=== PATIENT | female | born 1985 | race Caucasian/White ===

== ENCOUNTER 2020-01-12 12:15 | Emergency (ER) | payer OTHER, SELFPAY ==
[2020-01-12] MEDS: ONDANSETRON 4 MG/2 ML INJ IV (13:26)
[2020-01-12 13:35] LABS: Add Manual Diff / Slide Review NO; Basophils Absolute Auto 0 /uL (0-100); Basophils Percent Auto 0.2 % (0-2); Eosinophils Absolute Auto 0 /uL (0-450); Hematocrit 43.5 % (36-46); Lymphocytes Absolute Auto 700 /uL (1100-4500); Lymphocytes Percent Auto 5.3 % (25-40); Mean Corpuscular HGB Conc 34.5 % (30-36); Mean Corpuscular Hemoglobin 30.8 PG (26-34); Mean Corpuscular Volume 89.4 fL (80-100); Monocytes Absolute Auto 200 /uL (0-900); Monocytes Percent Auto 1.6 % (3-14); Neutrophils Absolute Auto 12200 /uL (1500-7000); Neutrophils Percent Auto 92.9 % (50-75); Platelet Count 290 X10^3/uL (150-400); Red Blood Cell Count 4.86 X10^6/uL (4.0-5.2); Red Cell Distribution Width 12.7 % (11.6-14.8); White Blood Cell Count 13.1 X10^3/uL (4.5-11.0)
[2020-01-12 13:43] LABS: INR 1.1 (0.9-1.3); Prothrombin Time 12.7 SECONDS (10.1-12.7)
[2020-01-12 13:46] LABS: PTT Partial Thromboplastin Tim 33 SECONDS (26.4-36.2)
[2020-01-12 13:52] LABS: Alanine Aminotransferase 30 IU/L (<35); Albumin 5.3 g/dL (3.5-5.0); Albumin Globulin Ratio 1.3 (1.0-2.8); Alkaline Phosphatase 158 U/L (38-126); Aspartate Aminotransferase 27 IU/L (14-36); BUN Creatinine Ratio 16.7 (6-22); Bilirubin Total 0.5 mg/dL (0.2-1.3); Blood Urea Nitrogen 10 mg/dL (7-17); Calcium 10.2 mg/dL (8.4-10.2); Carbon Dioxide 26 mmol/L (22-32); Chloride 103 mmol/L (98-107); Estimated Glomerular Filt Rate > 60.0 mL/min (>60); Globulin 4.1 g/dL (1.7-4.1); Glucose 140 mg/dL (70-100); HEMOLYSIS < 15 (0-50); Lipase 93 U/L (23-300); Potassium 4.2 mmol/L (3.4-5.1); Sodium 142 mmol/L (137-145); Total Protein 9.4 g/dL (6.3-8.2)
[2020-01-12 16:07] VITALS: BP 148/83; PULSE 80; RESP 16; O2SAT 98
--- NOTE | 2020-01-12 17:08 | DI.RAD.S_ITS ---
PROCEDURE: XR ACUTE ABDOMEN SERIES INDICATIONS: diffuse abdominal pain with cyclical vomiting TECHNIQUE: One view chest and two views of the abdomen were acquired. COMPARISON: None. FINDINGS: Surgical changes and devices: Cholecystectomy clips. Chest: Lungs are clear. Heart size is normal. No pleural effusions. No pneumoperitoneum. Abdomen: Bowel gas pattern is nonspecific. No suspicious calcifications. Visualized solid organ contours appear normal. Bones: No suspicious bony lesions. IMPRESSION: Nonspecific bowel gas pattern without definite evidence of obstruction. Dictated by: Tona Olson MD, PhD on 01/12/2020 at 18:00 Approved by: Tona Olson MD, PhD on 01/12/2020 at 18:01
[2020-01-12] MEDS: MAG HYDROX/ALUMINUM/SIMETH SUS 20 ML, LIDOCAINE VISCOUS 2% 15 ML PO (17:21)
[2020-01-12] MEDS: PANTOPRAZOLE 40 MG VIAL IV (17:21)
[2020-01-12] MEDS: diphenhydrAMINE 50 MG/ML VIAL 25 MG IV (17:22)
[2020-01-12] MEDS: SODIUM CHLORIDE 0.9% 1,000 ML 1000 ML IV (17:22)
[2020-01-12 17:24] VITALS: PULSE 77; TEMP 36.9; O2SAT 100
[2020-01-12] MEDS: ONDANSETRON 8 MG in SODIUM CHLORIDE 0.9% 50 ML 216 ML IV (17:25)
[2020-01-12] MEDS: DICYCLOMINE 10 MG CAPSULE 20 MG PO (17:40)
[2020-01-12 18:00] VITALS: BP 141/81; PULSE 71; RESP 16; O2SAT 99
--- NOTE | 2020-01-12 18:02 | ED.ABDPAIN ---
HPI - Abdominal Pain <Gonzalo Fuentes MD - Last Filed: 01/12/20 22:00> General Chief Complaint: Abdominal Pain Stated Complaint: constant vomiting since last night Time Seen by Provider: 01/12/20 16:37 Source: patient Mode of arrival: Ambulatory History of Present Illness HPI narrative: CC: Persistent recurrent vomiting HPI: The patient is a 34-year-old female with a history of persistent recurrent vomiting. This is the 3rd time that she has been in the hospital in the last few weeks prior to admission. She has a history of cyclical vomiting according to the patient. However with this episode she developed the worst pain she has had. She complains of severe indigestion and heartburn. She has had sweats with that fever chills. She has had chest pain that is secondary to burning. She denies being claims being short of breath. She does not remember when her last menstrual period is because she does not pay attention or remember them since she has had a tubal ligation. She has had her gallbladder removed but not her appendix. She has a history of asthma but denies diabetes. She smokes cigarettes but does not drink alcohol. She smokes marijuana 3 to 4 times a week. Her states that this is the 3rd time she has presented with this complaint in the last few weeks prior to admission. She she denies any cough but has had shortness of breath with severe heartburn and indigestion. She denies any muscle or joint aches as well as any significant backache. She has had no hematemesis coffee-ground emesis or bilious emesis. He has had copious diarrhea without melena or hematochezia. He she has had no urinary symptoms. Related Data Previous Rx's Medication Instructions Recorded ondansetron HCl [Zofran] 4 mg PO Q8H PRN #10 tab 01/12/20 promethazine 25 mg FL Q4-6H PRN #12 each 01/12/20 Allergies Allergy/AdvReac Type Severity Reaction Status Date / Time aspirin [ASPIRIN] Allergy Unknown DIFFICULTY Verified 01/12/20 12:28 BREATHING Review of Systems <Gonzalo Fuentes MD - Last Filed: 01/12/20 22:00> Review of Systems Narrative: Review of systems were all negative except for those mentioned in the history of present illness. Exam <Gonzalo Fuentes MD - Last Filed: 01/12/20 22:00> Narrative Exam Narrative: PHYSICAL EXAM: CONSTITUTIONAL: Awake, Alert, cooperative appears to be in [id number] distress. She appears ill and sick. HEAD: AT/NC EENT: PERRL, FROM of eyes, no discharge, Oral mucosa is moist and pink, posterior pharynx is without erythema or exudate. NECK: Supple, no obvious JVD, Trachea is midline without stridor, no palpable LN or masses. SPINE: No gross deformity, no palpable tenderness of the cervical, thoracic, lumbar or sacral spine. No CVA tenderness. THORAX: No deformity, retractions, chest wall tenderness, LUNGS: Breath sounds are clear symmetrical in decreased bilaterally without any rales rhonchi. HEART: Heart tones are regular rhythm and rate without murmur.. ABDOMEN: Abdomen is soft with diffuse tenderness in all 4 quadrants. Patient is most tender in the left lower quadrant. There is minimal guarding no rebound no rigidity appreciated. EXTREMITIES: No edema, cyanosis, deformity or tenderness. SKIN: No rash, bruising, petechiae or purpura. NEURO: Awake, alert, oriented, conversive, no focal facial asymmetry, cranial nerves II-XII are symmetrical moves all 4 extremities and is ambulatory Initial Vital Signs Initial Vital Signs: Vital Signs Pulse Rate 80 01/12/20 16:07 Respiratory Rate 16 01/12/20 16:07 Blood Pressure 148/83 H 01/12/20 16:07 Pulse Oximetry 98 01/12/20 16:07 <Sanjay Nguyễn DO - Last Filed: 01/13/20 05:12> Initial Vital Signs Initial Vital Signs: Vital Signs Pulse Rate 80 01/12/20 16:07 Respiratory Rate 16 01/12/20 16:07 Blood Pressure 148/83 H 01/12/20 16:07 Pulse Oximetry 98 01/12/20 16:07 Course <Gonzalo Fuentes MD - Last Filed: 01/12/20 22:00> Course Course Narrative: 1800 the patient still continues to complain of abdominal pain. Flat plate of the abdomen shows a questionable sentinel loop for small-bowel with a air. Will obtain a CT abdomen to rule out appendicitis or bowel obstruction. Orders Ordered: Discontinued Medications Al Hydrox/Mg Hydrox/Simethicone 20 ml/ Lidocaine HCl 15 ml 0 ml PO NOW ONE Stop: 02/16/20 17:10 Last Admin: 01/12/20 17:21 Dose: 35 ml Documented by: LILIA Dicyclomine HCl (Bentyl) 20 mg PO NOW ONE Stop: 01/12/20 17:15 Last Admin: 01/12/20 17:40 Dose: 20 mg Documented by: LILIA Diphenhydramine HCl (Benadryl) 25 mg IV NOW ONE Stop: 01/12/20 17:08 Last Admin: 01/12/20 17:22 Dose: 25 mg Documented by: LILIA Ondansetron HCl 8 mg/ Sodium (Chloride) 54 mls @ 216 mls/hr IV NOW ONE Stop: 01/12/20 17:08 Last Infusion: 01/12/20 17:45 Dose: 0 mls/hr Documented by: Admin: 01/12/20 17:25 Dose: 216 mls/hr Documented by: LILIA Sodium Chloride (Normal Saline 0.9%) 1,000 mls @ 1,000 mls/hr IV BOLUS ONE Stop: 01/12/20 18:08 Last Infusion: 01/12/20 21:21 Dose: 0 mls/hr Documented by: Admin: 01/12/20 17:22 Dose: 1,000 mls/hr Documented by: LILIA Ondansetron HCl (Zofran) 4 mg IV NOW ONE Stop: 01/12/20 13:22 Last Admin: 01/12/20 13:26 Dose: 4 mg Documented by: ELVIA Ondansetron HCl (Zofran Odt Prepack) 1 bottle MISC SEEINSTR ONE Stop: 01/12/20 20:13 Last Admin: 01/12/20 21:21 Dose: 1 bottle Documented by: SHELLEY Pantoprazole Sodium (Protonix) 40 mg IV NOW ONE Stop: 01/12/20 17:08 Last Admin: 01/12/20 17:21 Dose: 40 mg Documented by: LILIA Vital Signs Vital signs: Vital Signs - 8 hr 01/12/20 21:32 Temperature 98.4 F Pulse Rate 78 Respiratory Rate 18 Blood Pressure 126/76 Pulse Oximetry 100 <Sanjay Nguyễn DO - Last Filed: 01/13/20 05:12> Course Course Narrative: Patient received in sign-out from Dr. Fuentes. I performed independent history and physical. She has had no vomiting since being signed out to myself. Her pain is better. She is back from CT scan which shows no obstruction or surgical abnormalities. Patient feeling marked improvement, return precautions given, questions answered to her apparent satisfaction, ready for discharge Orders Ordered: Discontinued Medications Al Hydrox/Mg Hydrox/Simethicone 20 ml/ Lidocaine HCl 15 ml 0 ml PO NOW ONE Stop: 01/12/20 17:10 Last Admin: 01/12/20 17:21 Dose: 35 ml Documented by: LILIA Dicyclomine HCl (Bentyl) 20 mg PO NOW ONE Stop: 01/12/20 17:15 Last Admin: 01/12/20 17:40 Dose: 20 mg Documented by: LILIA Diphenhydramine HCl (Benadryl) 25 mg IV NOW ONE Stop: 01/12/20 17:08 Last Admin: 01/12/20 17:22 Dose: 25 mg Documented by: LILIA Ondansetron HCl 8 mg/ Sodium (Chloride) 54 mls @ 216 mls/hr IV NOW ONE Stop: 01/12/20 17:08 Last Infusion: 01/12/20 17:45 Dose: 0 mls/hr Documented by: Admin: 01/12/20 17:25 Dose: 216 mls/hr Documented by: LILIA Sodium Chloride (Normal Saline 0.9%) 1,000 mls @ 1,000 mls/hr IV BOLUS ONE Stop: 01/12/20 18:08 Last Infusion: 01/12/20 21:21 Dose: 0 mls/hr Documented by: Admin: 01/12/20 17:22 Dose: 1,000 mls/hr Documented by: LILIA Ondansetron HCl (Zofran) 4 mg IV NOW ONE Stop: 01/12/20 13:22 Last Admin: 01/12/20 13:26 Dose: 4 mg Documented by: ELVIA Ondansetron HCl (Zofran Odt Prepack) 1 bottle MISC SEEINSTR ONE Stop: 01/12/20 20:13 Last Admin: 01/12/20 21:21 Dose: 1 bottle Documented by: SHELLEY Pantoprazole Sodium (Protonix) 40 mg IV NOW ONE Stop: 01/12/20 17:08 Last Admin: 01/12/20 17:21 Dose: 40 mg Documented by: LILIA Vital Signs Vital signs: Vital Signs - 8 hr 01/12/20 21:32 Temperature 98.4 F Pulse Rate 78 Respiratory Rate 18 Blood Pressure 126/76 Pulse Oximetry 100 MDM - Abdominal Pain <Gonzalo Fuentes MD - Last Filed: 01/12/20 22:00> Lab Data Result diagrams: 01/12/20 13:21 01/12/20 13:21 Labs: Lab Results 01/12/20 01/12/20 01/12/20 Range/Units 13:21 13:21 13:21 WBC 13.1 H (4.5-11.0) X10^3/uL RBC 4.86 (4.0-5.2) X10^6/uL Hgb 15.0 (12.0-16.0) g/dL Hct 43.5 (36-46) % MCV 89.4 (80-100) fL MCH 30.8 (26-34) PG MCHC 34.5 (30-36) % RDW 12.7 (11.6-14.8) % Plt Count 290 (150-400) X10^3/uL Neut % (Auto) 92.9 H (50-75) % Lymph % (Auto) 5.3 L (25-40) % [place] % (Auto) 1.6 L (3-14) % Eos % (Auto) 0.0 L (2-4) % Baso % (Auto) 0.2 (0-2) % Neut # (Auto) 45144 H (6527-6339) /uL Lymph # (Auto) 700 L (5988-9373) /uL [place] # (Auto) 200 (0-900) /uL Eos # (Auto) 0 (0-450) /uL Baso # (Auto) 0 (0-100) /uL PT 12.7 (10.1-12.7) SECONDS INR 1.1 (0.9-1.3) APTT 33 (26.4-36.2) SECONDS Sodium 142 (137-145) mmol/L Potassium 4.2 (3.4-5.1) mmol/L Chloride 103 (98-107) mmol/L Carbon Dioxide 26 (22-32) mmol/L BUN 10 (7-17) mg/dL Creatinine 0.60 (0.52-1.04) mg/dL Estimated GFR > 60.0 (>60) mL/min BUN/Creatinine Ratio 16.7 (6-22) Glucose 140 H (70-100) mg/dL Calcium 10.2 (8.4-10.2) mg/dL Total Bilirubin 0.5 (0.2-1.3) mg/dL AST 27 (14-36) IU/L ALT 30 (<35) IU/L Alkaline Phosphatase 158 H (38-126) U/L Total Protein 9.4 H (6.3-8.2) g/dL Albumin 5.3 H (3.5-5.0) g/dL Globulin 4.1 (1.7-4.1) g/dL Albumin/Globulin Ratio 1.3 (1.0-2.8) Lipase 93 (23-300) U/L Urine RBC (0-5/HPF) Urine WBC (0-5/HPF) Ur Squamous Epith Cells (0-5/HPF) Urine Bacteria (None) Hyaline Casts (None) Urine Mucus (Negative) Ur Culture Indicated? 01/12/20 Range/Units 18:30 WBC (4.5-11.0) X10^3/uL RBC (4.0-5.2) X10^6/uL Hgb (12.0-16.0) g/dL Hct (36-46) % MCV (80-100) fL MCH (26-34) PG MCHC (30-36) % RDW (11.6-14.8) % Plt Count (150-400) X10^3/uL Neut % (Auto) (50-75) % Lymph % (Auto) (25-40) % [place] % (Auto) (3-14) % Eos % (Auto) (2-4) % Baso % (Auto) (0-2) % Neut # (Auto) (6018-7867) /uL Lymph # (Auto) (6600-7900) /uL [place] # (Auto) (0-900) /uL Eos # (Auto) (0-450) /uL Baso # (Auto) (0-100) /uL PT (10.1-12.7) SECONDS INR (0.9-1.3) APTT (26.4-36.2) SECONDS Sodium (137-145) mmol/L Potassium (3.4-5.1) mmol/L Chloride (98-107) mmol/L Carbon Dioxide (22-32) mmol/L BUN (7-17) mg/dL Creatinine (0.52-1.04) mg/dL Estimated GFR (>60) mL/min BUN/Creatinine Ratio (6-22) Glucose (70-100) mg/dL Calcium (8.4-10.2) mg/dL Total Bilirubin (0.2-1.3) mg/dL AST (14-36) IU/L ALT (<35) IU/L Alkaline Phosphatase (38-126) U/L Total Protein (6.3-8.2) g/dL Albumin (3.5-5.0) g/dL Globulin (1.7-4.1) g/dL Albumin/Globulin Ratio (1.0-2.8) Lipase (23-300) U/L Urine RBC 1-5/hpf (0-5/HPF) Urine WBC 0-1/hpf (0-5/HPF) Ur Squamous Epith Cells 1-5 /hpf (0-5/HPF) Urine Bacteria Moderate (10-30) H (None) Hyaline Casts 0-1/lpf (None) Urine Mucus 2+ H (Negative) Ur Culture Indicated? Cult not indicated Point of care testing: Point of Care Testing Test Results Negative Urine Dip Bedside Urine Glucose Negative Bedside Urine Bilirubin - Negative Bedside Urine Ketone +++ 80 Urine Specific [place] 1.015 Bedside Urine Occult Blood - Negative Bedside Urine pH 7.0 Bedside Urine Protein + 30 Bedside Urine Urobilinogen +/- 1mg Bedside Urine Nitrite - Negative Bedside Urine Leukocytes - Negative Esterase <Sanjay Nguyễn DO - Last Filed: 01/13/20 05:12> Lab Data Labs: Lab Results 01/12/20 01/12/20 01/12/20 Range/Units 13:21 13:21 13:21 WBC 13.1 H (4.5-11.0) X10^3/uL RBC 4.86 (4.0-5.2) X10^6/uL Hgb 15.0 (12.0-16.0) g/dL Hct 43.5 (36-46) % MCV 89.4 (80-100) fL MCH 30.8 (26-34) PG MCHC 34.5 (30-36) % RDW 12.7 (11.6-14.8) % Plt Count 290 (150-400) X10^3/uL Neut % (Auto) 92.9 H (50-75) % Lymph % (Auto) 5.3 L (25-40) % [place] % (Auto) 1.6 L (3-14) % Eos % (Auto) 0.0 L (2-4) % Baso % (Auto) 0.2 (0-2) % Neut # (Auto) 48866 H (4735-3501) /uL Lymph # (Auto) 700 L (7551-6173) /uL [place] # (Auto) 200 (0-900) /uL Eos # (Auto) 0 (0-450) /uL Baso # (Auto) 0 (0-100) /uL PT 12.7 (10.1-12.7) SECONDS INR 1.1 (0.9-1.3) APTT 33 (26.4-36.2) SECONDS Sodium 142 (137-145) mmol/L Potassium 4.2 (3.4-5.1) mmol/L Chloride 103 (98-107) mmol/L Carbon Dioxide 26 (22-32) mmol/L BUN 10 (7-17) mg/dL Creatinine 0.60 (0.52-1.04) mg/dL Estimated GFR > 60.0 (>60) mL/min BUN/Creatinine Ratio 16.7 (6-22) Glucose 140 H (70-100) mg/dL Calcium 10.2 (8.4-10.2) mg/dL Total Bilirubin 0.5 (0.2-1.3) mg/dL AST 27 (14-36) IU/L ALT 30 (<35) IU/L Alkaline Phosphatase 158 H (38-126) U/L Total Protein 9.4 H (6.3-8.2) g/dL Albumin 5.3 H (3.5-5.0) g/dL Globulin 4.1 (1.7-4.1) g/dL Albumin/Globulin Ratio 1.3 (1.0-2.8) Lipase 93 (23-300) U/L Urine RBC (0-5/HPF) Urine WBC (0-5/HPF) Ur Squamous Epith Cells (0-5/HPF) Urine Bacteria (None) Hyaline Casts (None) Urine Mucus (Negative) Ur Culture Indicated? 01/12/20 Range/Units 18:30 WBC (4.5-11.0) X10^3/uL RBC (4.0-5.2) X10^6/uL Hgb (12.0-16.0) g/dL Hct (36-46) % MCV (80-100) fL MCH (26-34) PG MCHC (30-36) % RDW (11.6-14.8) % Plt Count (150-400) X10^3/uL Neut % (Auto) (50-75) % Lymph % (Auto) (25-40) % [place] % (Auto) (3-14) % Eos % (Auto) (2-4) % Baso % (Auto) (0-2) % Neut # (Auto) (8524-5474) /uL Lymph # (Auto) (4639-8759) /uL [place] # (Auto) (0-900) /uL Eos # (Auto) (0-450) /uL Baso # (Auto) (0-100) /uL PT (10.1-12.7) SECONDS INR (0.9-1.3) APTT (26.4-36.2) SECONDS Sodium (137-145) mmol/L Potassium (3.4-5.1) mmol/L Chloride (98-107) mmol/L Carbon Dioxide (22-32) mmol/L BUN (7-17) mg/dL Creatinine (0.52-1.04) mg/dL Estimated GFR (>60) mL/min BUN/Creatinine Ratio (6-22) Glucose (70-100) mg/dL Calcium (8.4-10.2) mg/dL Total Bilirubin (0.2-1.3) mg/dL AST (14-36) IU/L ALT (<35) IU/L Alkaline Phosphatase (38-126) U/L Total Protein (6.3-8.2) g/dL Albumin (3.5-5.0) g/dL Globulin (1.7-4.1) g/dL Albumin/Globulin Ratio (1.0-2.8) Lipase (23-300) U/L Urine RBC 1-5/hpf (0-5/HPF) Urine WBC 0-1/hpf (0-5/HPF) Ur Squamous Epith Cells 1-5 /hpf (0-5/HPF) Urine Bacteria Moderate (10-30) H (None) Hyaline Casts 0-1/lpf (None) Urine Mucus 2+ H (Negative) Ur Culture Indicated? Cult not indicated Point of care testing: Point of Care Testing Test Results Negative Urine Dip Bedside Urine Glucose Negative Bedside Urine Bilirubin - Negative Bedside Urine Ketone +++ 80 Urine Specific [place] 1.015 Bedside Urine Occult Blood - Negative Bedside Urine pH 7.0 Bedside Urine Protein + 30 Bedside Urine Urobilinogen +/- 1mg Bedside Urine Nitrite - Negative Bedside Urine Leukocytes - Negative Esterase Discharge Plan Departure Patient Disposition: Home Clinical Impression: Cyclical vomiting Gastroesophageal reflux disease Qualifiers: Esophagitis presence: with esophagitis Qualified Code(s): K21.0 - Gastro-esophageal reflux disease with esophagitis Abdominal pain Qualifiers: Abdominal location: generalized Qualified Code(s): R10.84 - Generalized abdominal pain Discharge Date/Time: 01/12/20 21:34 Instructions: DI for Vomiting -- Adult Activity Restrictions/Additional Instructions: There is no evidence of an emergent or life threatening illness at this time, but follow up with your doctor in 1-2 days is recommended nonetheless to continue to rule out serious underlying causes of your symptoms. Please call the office for an appointment. Please return to the Emergency Department for any worsening or persistent symptoms. Please take medications as directed. 1. Drink plenty of fluids with frequent small sips. 2. For the next 24 hours a clear liquid diet is advised. After that please employ a brat diet which would include bananas, rice, apples, toast. 3. Please take medications as directed. Transmitted to [facility] in [place] at your request. 4. Please follow-up with your doctor in the next 1-2 days. Call the office for an appointment. 5. Please return to the emergency Department for any worsening or persistent symptoms, such as increasing pain or fever. Prescriptions: New ondansetron HCl [Zofran] 4 mg tablet 4 mg PO Q8H PRN (Reason: nausea and vomiting) Qty: 10 RF: 0 promethazine 25 mg suppository 25 mg FL Q4-6H PRN (Reason: nausea and vomiting) Qty: 12 RF: 0
--- NOTE | 2020-01-12 18:07 | DI.CT.S_ITS ---
PROCEDURE: CT ABDOMEN PELVIS W CON INDICATIONS: persistent recurrent vomiting with RLQ pain TECHNIQUE: After the administration of intravenous contrast, 5 mm thick sections acquired from the diaphragm to the symphysis. 5 mm coronal and sagittal reformats were acquired. For radiation dose reduction, the following was used: automated exposure control, adjustment of mA and/or kV according to patient size. COMPARISON: [facility], CT, ABDOMEN/PELVIS WITH CONTRAST, 11/30/2017, 21:23. FINDINGS: Image quality: Excellent. ABDOMEN: Lung bases: Lung bases are clear. Heart size is normal. Solid organs: Liver is normal in size and enhancement. Gallbladder is surgically absent. Biliary system is non dilated. Pancreas enhances normally. Spleen is normal in size and enhancement. No adrenal nodules. Kidneys demonstrate normal size and enhancement, without hydronephrosis. Peritoneum and bowel: Bowel loops demonstrate normal wall thickness and caliber. A moderate amount of stool noted in the right colon. No free fluid or air. The appendix is normal. Nodes and vessels: No retroperitoneal or mesenteric adenopathy by size criteria. Aorta and inferior vena cava are normal in size. Miscellaneous: No ventral hernias. PELVIS: Genitourinary: Bladder wall thickness is normal. Small cyst in the anterior margin of the cervix is stable compared to prior exam and likely represents nabothian cyst. 1.8 cm involuting cysts noted in the left ovary. Miscellaneous: No inguinal hernias or adenopathy. Bones: No suspicious bony lesions. No vertebral body compression fractures. IMPRESSION: 1. No acute disease process identified. 2. No appendicitis. 3. No free fluid or free air. 4. No dilated loops of bowel. 5. Moderate fecal loading involving the right colon. Dictated by: Tona Olson MD, PhD on 01/12/2020 at 19:40 Approved by: Tona Olson MD, PhD on 01/12/2020 at 19:45
[2020-01-12 19:00] VITALS: BP 128/80; PULSE 76; RESP 16; O2SAT 100
[2020-01-12 19:02] LABS: RBC Urine 1-5/HPF (0-5/HPF)
[2020-01-12 19:04] LABS: Bacteria Urine Moderate (10-30); Squamous Epithelial Cell Urine 1-5 /HPF (0-5/HPF); WBC Urine 0-1/HPF (0-5/HPF)
[2020-01-12 19:05] LABS: Culture Indicated Urine Cult Not Indicated; Hyaline Casts Urine 0-1/LPF; Mucus Urine 2+ (Negative)
[2020-01-12] MEDS: ONDANSETRON 4 MG ODT PREPACK 1 BOTTLE MISC (21:21)
[2020-01-12 21:32] VITALS: BP 126/76; PULSE 78; RESP 18; TEMP 36.9; O2SAT 100
== END 2020-01-12 21:34 | disposition home or self-care (01) ==
PROVIDERS: Emergency Medicine; Emergency Provider Emergency Medicine
DX: R11.15 Cyclical vomiting syndrome unrelated to migraine (principal); K21.0 Gastro-esophageal reflux disease with esophagitis; R10.84 Generalized abdominal pain
CPT/HCPCS: 36415; 74022; 74177; 80053; 81003; 81015; 81025; 83690; 85025; 85610; 85730; 93005; 96361; 96365; 96375; 99285; C9113; J1200; J2405; Q9967